=== PATIENT | male | born 1950 | race Caucasian/White ===

== ENCOUNTER → 2016-12-03 | Day surgery (SDC) | payer OTHER | END | disposition home or self-care (01) | LOC: FIMAGING 13:41 | PROVIDERS: ATTEND Radiology Diagnostic Radiology | PROC: 02HV33Z Insertion of Infusion Device into Superior Vena Cava, Percutaneous Approach (ICD-10-PCS; principal; 2016-12-03) | DX: T81.4XXA Infection following a procedure, initial encounter (principal); M00.812 Arthritis due to other bacteria, left shoulder; Z79.2 Long term (current) use of antibiotics | CPT/HCPCS: 36569; 77001; C1751 ==

== ENCOUNTER 2016-12-23 19:52 | Observation (INO) | payer OTHER ==
--- NOTE | 2016-12-23 20:31 | EDPHY ---
HPI/HX/ROS/PE/MDM Narrative: CHIEF COMPLAINT: PICC line pain. HISTORY OF PRESENT ILLNESS: The patient is a 66-year-old male with recent joint infection s/p left arm surgery, presenting with pain at his PICC line. The patient had the PICC line changed last Thursday12/19/16. Since the PICC line was changed the patient has been complaining of pain at the PICC site as well as bilateral axillary pain, worse in the right. He believes the pain is in his lymph nodes. He reports increased sensitivity at the lymph nodes. The pain is constant and feels similar to a bee sting. The patient notes some shortness of breath, but states this is due to increased stress. He denies fever, chills, chest pain, vomiting, diarrhea, urinary complaints, headache, or lightheadedness. REVIEW OF SYSTEMS: Aside from elements discussed in the HPI, a comprehensive 10-point review of systems was reviewed and is negative. PAST MEDICAL HISTORY: Cardiac ablation x2, PVCs, Sleep apnea, Left rotator cuff surgery. SOCIAL HISTORY: . Lives up [facility]. VITAL SIGNS: Reviewed by me GENERAL: Well-developed, well-nourished, resting comfortably in no respiratory distress. HEENT: Atraumatic. Eyes: No icterus, no injection. Mouth: moist mucous membranes. No erythema or lesions. Neck: supple with no adenopathy. LUNGS: Clear to auscultation bilaterally, no wheezes, rhonchi or rales. CARDIAC: Regular rate and rhythm, no rubs, murmurs or gallops. ABDOMEN: Soft, nontender, nondistended, bowel sounds normal. BACK: No CVA tenderness. EXTREMITIES: Right upper extremity PICC site no erythema, tenderness, swelling , or warmth. NEURO: Alert and oriented, grossly nonfocal. SKIN: Warm and dry, no rash. PSYCHIATRIC: Anxious appearing Portions of this note were transcribed by a medical scientific liaison. I personally performed a history, physical exam, medical decision making, and confirmed accuracy of information the transcribed note. ED Course: Patient presents with axillary pain that started after having his PICC line changed. PICC site appears normal, no erythema, swelling, tenderness, or warmth. Plan for right extremity ultrasound. EKG and chest x-ray ordered. Chest x-ray is negative for acute disease. US shows nonocclusive thrombus throughout the right subclavian, axillary, and brachial vein. Lab work is unremarkable, troponin is normal. 10:10 p.m.: I spoke Dr. Prakash, the hospitalist, who accepts the patient for admission. She recommends removing the PICC line. I started the patient on Lovenox. I ordered CT to look for PE due to complaints of shortness of breath. I spoke to Dr. Fry, who recommends not removing the PICC line. Patient should be started on Heparin or Lovenox. Patient's CT scan for pulmonary embolism is positive for a small pulmonary embolism in the right upper lobe. MDM: Differential diagnoses for the patient's symptom complex was considered including but not limited to infection, upper extremity DVT, pulmonary embolism , congestive heart failure, coronary artery disease. - Data Points Imaging Results: Imaging Impressions Chest X-Ray 12/23/16 20:38 Impression: No evidence for acute cardiopulmonary abnormality. Right PICC line appears in good position. Extremity Venous Study 12/23/16 20:39 Impression: Nonocclusive thrombus throughout the right subclavian, axillary, and brachial vein. Results called and discussed with Roxanne Booker MD at 12/23/2016 21:50. Chest/Thorax CTA 12/23/16 22:11 Impression: 1. Small pulmonary embolus in the posterior segment right upper lobe. 2. Minimal diskoid atelectasis right lower lobe. Imaging: Discussed imaging studies w/ forensic technician Radiologist Laboratory Results: Laboratory Results 12/23/16 20:44 12/23/16 20:44 12/23/16 12/23/16 20:44 20:44 WBC 8.05 10^3/uL 10^3/uL (3.80-9.50) RBC 4.23 10^6/uL L 10^6/uL (4.40-6.38) Hgb 13.4 g/dL L g/dL (13.7-17.5) Hct 38.8 % L % (40.0-51.0) MCV 91.7 fL fL (81.5-99.8) MCH 31.7 pg pg (27.9-34.1) MCHC 34.5 g/dL g/dL (32.4-36.7) RDW 13.0 % % (11.5-15.2) Plt Count 139 10^3/uL L 10^3/uL (150-400) MPV 10.0 fL fL (8.7-11.7) Neut % (Auto) 68.8 % % (39.3-74.2) Lymph % (Auto) 18.1 % % (15.0-45.0) Quay % (Auto) 8.3 % % (4.5-13.0) Eos % (Auto) 3.0 % % (0.6-7.6) Baso % (Auto) 0.4 % % (0.3-1.7) Nucleat RBC Rel Count 0.0 % % (0.0-0.2) Absolute Neuts (auto) 5.54 10^3/uL 10^3/uL (1.70-6.50) Absolute Lymphs (auto) 1.46 10^3/uL 10^3/uL (1.00-3.00) Absolute Monos (auto) 0.67 10^3/uL 10^3/uL (0.30-0.80) Absolute Eos (auto) 0.24 10^3/uL 10^3/uL (0.03-0.40) Absolute Basos (auto) 0.03 10^3/uL 10^3/uL (0.02-0.10) Absolute Nucleated RBC 0.00 10^3/uL 10^3/uL (0-0.01) Immature Gran % 1.4 % H % (0.0-1.1) Immature Gran # 0.11 10^3/uL H 10^3/uL (0.00-0.10) Sodium 140 mEq/L mEq/L (134-144) Potassium 3.9 mEq/L mEq/L (3.5-5.2) Chloride 105 mEq/L mEq/L (97-110) Carbon Dioxide 23 mEq/l mEq/l (22-31) Anion Gap 12 mEq/L mEq/L (8-16) BUN 19 mg/dL mg/dL (7-23) Creatinine 0.9 mg/dL mg/dL (0.7-1.3) Estimated GFR > 60 Glucose 94 mg/dL mg/dL (70-100) Calcium 9.5 mg/dL mg/dL (8.5-10.4) Troponin I < 0.012 ng/mL ng/mL (0-0.034) Medications Given: Discontinued Medications Enoxaparin Sodium (Lovenox) 80 mg SC EDNOW ONE Stop: 12/23/16 22:46 Last Admin: 12/23/16 23:07 Dose: 80 mg General Time Seen by Provider: 12/23/16 20:18 Initial Vital Signs: Initial Vital Signs Temperature (C) 36.4 C 12/23/16 19:56 Heart Rate 61 12/23/16 19:56 Respiratory Rate 16 12/23/16 19:56 Blood Pressure 150/83 H 12/23/16 19:56 O2 Sat (%) 93 12/23/16 19:56 O2 Delivery Mode Room Air Allergies/Adverse Reactions: Penicillins Allergy (Unknown, Verified 12/23/16 20:04) Home Medications: Medication Instructions Recorded Atorvastatin Calcium [Lipitor 20 20 mg PO DAILY 02/24/11 mg] HYDROCODONE BIT/ACETAMINOPHEN 1 - 2 ahfu PO Q4 PRN #11 02/24/11 [HYDROCODONE-APAP 10-500 TABLET] Metoprolol Tartrate [Lopressor] 25 mg PO BID 02/24/11 Supplements 02/24/11 Ambien 5MG (*) 12/23/16 Departure - Departure Disposition: [facility] Inpatient Acute Clinical Impression: DVT (deep venous thrombosis) Qualifiers: DVT location: upper extremity Affected thrombotic vein of extremity: axillary Chronicity: acute Laterality: right Qualified Code(s): I82.A11 - Acute embolism and thrombosis of right axillary vein Pulmonary embolism Qualifiers: Pulmonary embolism type: other Chronicity: acute Acute cor pulmonale presence: without acute cor pulmonale Qualified Code(s): I26.99 - Other pulmonary embolism without acute cor pulmonale Condition: Fair Report Scribed for: Roxanne Booker Report Scribed by: Margarette Fan Date of Report: 12/23/16 Time of Report: 20:38
[2016-12-23 20:58] LABS: % IMMATURE GRANULYOCYTES 1.4 % (0.0-1.1); ABSOLUTE IMMATURE GRANULOCYTES 0.11 10^3/uL (0.00-0.10); ADD DIFF? NO; ADD MORPH? NO; ADD SCAN? NO; ATYPICAL LYMPHOCYTE FLAG 0 (0-99); FRAGMENT RBC FLAG 0 (0-99); HEMATOCRIT 38.8 % (40.0-51.0); HEMOGLOBIN 13.4 g/dL (13.7-17.5); LEFT SHIFT FLG 10 (0-99); LIPEMIA HEMOLYSIS FLAG 90 (0-99); MEAN CELL HEMOGLOBIN 31.7 pg (27.9-34.1); MEAN CELL HEMOGLOBIN CONCENTR. 34.5 g/dL (32.4-36.7); MEAN CELL VOLUME 91.7 fL (81.5-99.8); PLATELET CLUMPS FLAG 0 (0-99); PLATELET COUNT 139 10^3/uL (150-400); RED BLOOD CELL COUNT 4.23 10^6/uL (4.40-6.38)
[2016-12-23 21:10] LABS: ANION GAP 12 mEq/L (8-16); CALCIUM 9.5 mg/dL (8.5-10.4); CARBON DIOXIDE 23 mEq/l (22-31); CHLORIDE 105 mEq/L (97-110); CREATININE 0.9 mg/dL (0.7-1.3); GLOMERULAR FILTRATION RATE > 60; GLUCOSE 94 mg/dL (70-100); POTASSIUM 3.9 mEq/L (3.5-5.2); SODIUM 140 mEq/L (134-144)
[2016-12-23 21:22] LABS: TROPONIN I < 0.012 ng/mL (0-0.034)
--- NOTE | 2016-12-23 21:28 | CPEKG ---
Heart Rate: 64 RR Interval: 938 P-R Interval: 184 QRSD Interval: 90 QT Interval: 448 QTC Interval: 463 P Tanner: 68 QRS Tanner: 18 T Wave Tanner: 24 EKG Severity - NORMAL ECG - EKG Impression: SINUS RHYTHM Electronically Signed By: Roxanne Booker 24-Dec-2016 00:42:21
[2016-12-23] MEDS ORDERED: IOPAMIDOL (ISOVUE 370) 100 ML BTL IV ONE (22:15)
[2016-12-23] MEDS ORDERED: HYDROCODONE/APAP 5/325 TAB ONE (22:42)
[2016-12-23] MEDS ORDERED: ENOXAPARIN 80 MG/0.8 ML SYR SC ONE (22:45)
[2016-12-23] MEDS: HYDROCODONE/APAP 5/325 TAB PO PRN (22:46)
[2016-12-23] MEDS ORDERED: ONDANSETRON 4 MG/2 ML VIAL IVP PRN (23:41)
[2016-12-23] MEDS ORDERED: ACETAMINOPHEN 325 MG TAB PO PRN (23:41)
[2016-12-23] MEDS ORDERED: ONDANSETRON DISINTEGRATING 4 MG TAB PO PRN (23:41)
[2016-12-24] MEDS ORDERED: ZOLPIDEM TARTRATE 5 MG TAB PO PRN (00:14)
--- NOTE | 2016-12-24 01:24 | GHP ---
[f rep st] HISTORY AND PHYSICAL DATE OF ADMISSION: 12/23/2016 CHIEF COMPLAINT: Right subclavian, axillary, brachial DVT, and small pulmonary embolism. HISTORY OF PRESENT ILLNESS: The patient is a 66-year-old male who presents with right arm swelling for the past day and a half, along with warmth. He does have a PICC line in place for long-term antibiotics in that arm. He initially underwent rotator cuff repair in October 2015 and then developed frozen shoulder and persistent pain. He got a second opinion and returned to the operating room on 11/14/2016 and underwent extensive debridement, anterior capsular release, removal of sutures, subacromial decompression, and revision of the cuff repair. Cultures were taken and grew P acnes. The patient was initially placed on doxycycline but was re-evaluated and was started on IV ceftriaxone in November of this year. He is followed by Dr. Monik Luna with Infectious Disease. Next, he complains of mildly sharp pain in his right axilla and under the biceps. He has noticed mild shortness of breath over this past week when walking his normal mile 3-4 times a week. Has associated lightheadedness and queasiness after infusing antibiotics at home. Denies overt chest pain. REVIEW OF SYSTEMS: I completed a 10-point review of systems, negative except as noted in HPI. PAST MEDICAL HISTORY: 1. Hyperlipidemia. 2. AIDAN on CPAP. 3. Retinal detachment. 4. Left septic arthritis on long-term antibiotics through 12/30/2016. 5. Squamous cell carcinoma. PAST SURGICAL HISTORY: 1. PVC ablation x2. 2. Cervical fusion. 3. Knee surgery. 4. Left shoulder surgery, as stated above. Laminectomy. SOCIAL HISTORY: Lives in [facility] with his . Drinks 1 drink a day ( previously drank up to 5 drinks a day.) No tobacco or drugs. FAMILY HISTORY: Father with prostate cancer. Mother passed of alcoholism. HOME MEDICATIONS: 1. Aspirin 325 mg daily. 2. Ceftriaxone 2 g IV daily through 12/30/2016. 3. Lipitor 20. 4. Metoprolol 25 mg twice daily. 5. Oxycodone. 6. Colace. 7. Vicodin. 8. Ambien 5 mg. ALLERGIES: Penicillin. PHYSICAL EXAMINATION: VITAL SIGNS: Temperature 36.3, blood pressure 165/81, respirations 16, 96% on room air. GENERAL: Patient is sitting up in bed, in no acute distress. HEENT: PERRLA. EOMI. Oropharynx clear. CV: Regular, bradycardic. No murmurs, gallops, or rubs. LUNGS: Clear to auscultation bilaterally. ABDOMEN: Soft, nontender, nondistended. : No suprapubic tenderness. MUSCULOSKELETAL: Left shoulder with limited range of motion. Surgical scar is healing well, clean, dry, and intact. Right arm with PICC line in place without evidence of infection. There is mild swelling of the upper arm. No warmth or erythema. NEURO: 2 through 12 intact. PSYCH: Alert and oriented x3. LABORATORY DATA: WBC is 8, hemoglobin 13, hematocrit 38, platelets 139. Sodium 140, potassium 3.9, chloride 105, carbon dioxide 23, BUN 19, creatinine 0.9, glucose 94. Troponin less than 0.012. EKG personally reviewed by me: Normal sinus rhythm. Chest x-ray personally reviewed: No effusion. PICC line appropriately placed. CTA: Small pulmonary embolus in the posterior segment of right upper lobe. Right upper extremity ultrasound: Nonocclusive thrombus throughout the right subclavian axillary and brachial vein. ASSESSMENT AND PLAN: 1. Provoked nonocclusive right subclavian/axillary/brachial deep venous thrombosis and small pulmonary embolism: due to peripherally-inserted central catheter line. Hemodynamically stable, negative troponin and no heart strain on EKG. Dose Lovenox tonight. I have discussed oral options including Coumadin versus novel agents and risks/benefits. Will further discuss the case with IR in the morning. Dr. Booker with ER initially talked to Dr. Fry, who stated that the line could stay in place, but will readdress with IR in the morning. 2. Left septic arthritis: continue ceftriaxone; normally takes 5pm. Closely by Dr. Monik Luna with Infectious Disease. 3. Obstructive sleep apnea: CPAP. 4. Hyperlipidemia: Statin. 5. Premature ventricular contractions, status post ablation x2: Continue metoprolol. 6. Chronic pain: resume home medications 7. Alcohol use: counseled on cessation. He has decreased the amount of drinking in the past 3 weeks. 8. Diet: Regular. 9. Deep venous thrombosis prophylaxis: On Lovenox. DISPOSITION: The patient warrants observation admission, given acute right upper extremity DVT, PE. Will discuss the case with IR and likely can DC in the morning. /[id number]/MODL MTDD
[2016-12-24] MEDS: HYDROCODONE/APAP 5/325 TAB PO PRN ×2 (04:27→08:30)
[2016-12-24 05:23] LABS: INR 1.02 (0.83-1.16); PROTIME(PATIENT) 13.3 SEC (12.0-15.0)
[2016-12-24 08:09] VITALS: RESP 16; O2SAT 94
[2016-12-24] MEDS ORDERED: DOCUSATE SODIUM 100 MG CAP PO SCH ×2 (09:00→21:00)
[2016-12-24] MEDS ORDERED: cefTRIAXone 2 GM in D5W 50 ML IV SCH ×2 (09:00→17:00)
[2016-12-24] MEDS ORDERED: ENOXAPARIN 80 MG/0.8 ML SYR SC SCH (09:00)
[2016-12-24] MEDS ORDERED: METOPROLOL TARTRATE 25 MG TAB PO SCH ×2 (09:00→21:00)
--- NOTE | 2016-12-24 10:26 | PDIAF ---
- Diagnosis Diagnosis: Septic arthritis L shoulder Code Status: Full Code - Medication Management Discharge Medications: Medications to Continue on Transfer Atorvastatin Calcium [Lipitor 20 mg] 20 mg PO DAILY 02/24/11 [Last Taken Unknown ] HYDROCODONE BIT/ACETAMINOPHEN [HYDROCODONE-APAP 10-500 TABLET] 1 - 2 ahfu PO Q4 PRN #11 02/24/11 [Last Taken Unknown] Metoprolol Tartrate [Lopressor] 25 mg PO BID 02/24/11 [Last Taken Unknown] Supplements 02/24/11 [Last Taken Unknown] Ambien 5MG (*) 12/23/16 [Last Taken Unknown] Fpc Antibiotics: ceftriaxone 2gm IV daily Credit Processor Antibiotic Stop Date: 12/30/16 Discharge Medications: Refer to the Discharge Home Medication list for PRN reason. PICC Care - Routine: Yes - Labs/Radiology CBC Date: 12/30/16 (weekly in clinic) CMP Date: 12/30/16 (weekly in clinic) - Follow Up Care Current Providers and Referrals: Giovanni Davila MD [Primary Care Provider] - As per Instructions Monik Luna MD [Medical Doctor] - 12/30/16 8:30 am
--- NOTE | 2016-12-24 10:26 | PCMIDPN ---
Assessment/Plan: L Septic arthritis secondary to p acnes --4 weeks ceftriaxone , stop date 12/30 --leave PICC in place, treat RUE clot/PE per IM recs --will pull PICC next week 12/30 --dc okay from ID perspective, interagency completed Subjective: 66 yo patient of my mine with septic arthritis of L shoulder with p acnes following ACL repair, now complicated by DVT associated with PICC and small PE. Today patient remains worried because of B axiliary pain. Objective: Vital Signs Temp Pulse Resp BP Pulse Ox 36.3 C 67 16 104/61 94 12/24/16 08:00 12/24/16 08:00 12/24/16 08:00 12/24/16 08:00 12/24/16 08:00 12/23/16 12/24/16 12/25/16 05:59 05:59 05:59 Intake Total 100 Balance 100 - Physical Exam General Appearance: alert, no apparent distress Respiratory: No accessory muscle use - Time Spent With Patient Time Spent with Patient: greater than 35 minutes (education regarding ongoing IV antibiotics, leaving PICC line in place, futher complications including rash , diarrhea, fever) Time Spent with Patient: Greater than 35 minutes spent on this patients care, greater than 50% of time spent counseling, educating, and coordinating care regarding the above mentioned plan. ICD10 Worksheet Patient Problems: Problems Problem Status Onset DVT (deep venous thrombosis) Acute Pulmonary embolism Acute
--- NOTE | 2016-12-24 10:32 | HOSPPROG ---
Hospitalist Progress Note Assessment/Plan: Patient is a 66-year-old male who presented to the emergency room with right arm swelling for the last day and half. Her right upper extremity ultrasound shows a nonocclusive thrombus to the right subclavian axillary and brachial vein. A CT noted a small pulmonary embolus in the posterior segment of the right upper lobe. Today is my 1st encounter with the patient. Chart reviewed. Discussed his care with Dr. Luna. * DVT /right subclavian / axillary/ brachial area as well as a small PE on treatment dose of low molecular weight heparin will discuss with the patient options for anticoagulation/ coumadin in the past / but difficulty getting INR will treat w Xarelto-he is checking his insurance * left septic arthritis PICC in place will be continued on ceftriaxone * obstructive sleep apnea CPAP * hyperlipidemia statin therapy * history of PVCs status post ablation on metoprolol reviewed tele / infreq PVc * chronic pain * alcohol use *Plan: dc later today Subjective: Luis is anxious for discharge. Objective: Vital Signs Temp Pulse Resp BP Pulse Ox 36.3 C 67 16 104/61 94 12/24/16 08:00 12/24/16 08:00 12/24/16 08:00 12/24/16 08:00 12/24/16 08:00 12/23/16 12/24/16 12/25/16 05:59 05:59 05:59 Intake Total 100 Balance 100 PT 13.3 SEC (12.0-15.0) 12/24/16 04:50 INR 1.02 (0.83-1.16) 12/24/16 04:50 - Physical Exam Constitutional: no apparent distress, appears nourished, not in pain Eyes: PERRL Ears, Nose, Mouth, Throat: hearing normal Respiratory: no respiratory distress Skin: other (r arm w picc in place/minimal swelling) Neurologic: AAOx3 Psychiatric: interacting appropriately ICD10 Worksheet Patient Problems: Problems Problem Status Onset DVT (deep venous thrombosis) Acute Pulmonary embolism Acute
[2016-12-24 11:17] VITALS: BP 109/71; PULSE 61; TEMP 98.2
[2016-12-24] MEDS ORDERED: HYDROCODONE/APAP 10/325 TAB PO PRN (12:06)
--- NOTE | 2016-12-24 12:30 | GDS ---
[f rep st] DISCHARGE SUMMARY DISCHARGE DIAGNOSES: 1. Deep vein thrombosis in the right subclavian, axillary, and brachial area, as well as a small pulmonary embolism on the right side. 2. Left septic arthritis. 3. Obstructive sleep apnea. 4. Hyperlipidemia. 5. History of premature ventricular contractions, status post ablation. 6. Chronic pain. 7. Alcohol use. CONSULTATIONS: During his state, Monik Luna MD. HISTORY: The patient is a 66-year-old male, who presented with right-arm swelling for approximately a day and a half with warmth. He has a PICC line placed for long-term antibiotics. He initially underwent a rotator cuff repair in October 2015 and developed a frozen shoulder and persistent pain. He had a 2nd opinion and returned to the operating room in October 2016. At that time, he underwent extensive debridement and revision of the cuff repair. Cultures were taken and grew out P acnes. He is on ceftriaxone for this. He was having some sharp pain in his right axilla and under the biceps. He has noticed some mild shortness of breath. He also today was complaining of pain underneath the left armpit area. He will be discharged to home on Xarelto and further followup with his shade cloth finisher in regard to aspirin therapy and Xarelto, as well as having PVCs. HOSPITAL COURSE PER PROBLEM: 1. Nonocclusive DVT in the right subclavian, axillary, and brachial area, as well as a small PE. He was treated with treatment dose of low molecular-weight heparin. He will be on Xarelto. 2. Septic arthritis. PICC in place. He will be on ceftriaxone. 3. Obstructive sleep apnea, on CPAP. 4. Hyperlipidemia, on statin therapy. 5. History of PVCs, status post ablation. I reviewed his telemetry strips. He has had very few PVCs. He is on metoprolol. 6. Chronic pain. Continues home medication. 7. Alcohol use. He has cut down significantly over the last couple weeks. DISCHARGE CONDITION: Stable. Blood pressure is 109/71, heart rate is 61 respiratory rate is 16, O2 sats on room air 94%, temperature is 36.8 Celsius. MEDICATIONS AT DISCHARGE: Please see the EMR. DISCHARGE INSTRUCTIONS: 1. Recommending that he avoid alcohol in the setting of being on Xarelto as well as aspirin therapy. 2. Discuss with his shade cloth finisher if he needs to stay on aspirin while on Xarelto. 3. Follow up with Dr. Monik Luna as scheduled. 4. I have given him a handout in regards to Xarelto. /[id number]/MODL MTDD
[2016-12-24] MEDS ORDERED: [UNRECOGNIZED DRUG - OTHER] IV SCH (17:00)
[2016-12-24] MEDS ORDERED: CEFTRIAXONE IN IS OSM DEXTROSE IV SCH (17:00)
[2016-12-24] MEDS ORDERED: ATORVASTATIN CALCIUM 20 MG TAB PO SCH (18:00)
[2016-12-24] MEDS ORDERED: ZOLPIDEM TARTRATE 5 MG TAB PO SCH (21:00)
[2016-12-24] MEDS ORDERED: METOPROLOL TARTRATE 100 MG TAB PO SCH (21:00)
[2016-12-25] MEDS ORDERED: Herbals/Supplements -Info Only PO SCH (09:00)
== END 2016-12-24 13:33 | disposition home or self-care (01) ==
LOC: F3E 23:11
PROVIDERS: ADMIT Internal Medicine; ATTEND Family Medicine
DX: I82.B11 Acute embolism and thrombosis of right subclavian vein (principal); I82.A11 Acute embolism and thrombosis of right axillary vein; M00.812 Arthritis due to other bacteria, left shoulder; I26.99 Other pulmonary embolism without acute cor pulmonale; T82.868A Thrombosis due to vascular prosthetic devices, implants and grafts, initial encounter; T81.4XXA Infection following a procedure, initial encounter; G47.33 Obstructive sleep apnea (adult) (pediatric); E78.5 Hyperlipidemia, unspecified; Y82.8 Other medical devices associated with adverse incidents; G89.29 Other chronic pain; I49.9 Cardiac arrhythmia, unspecified; Z95.9 Presence of cardiac and vascular implant and graft, unspecified; Z85.828 Personal history of other malignant neoplasm of skin; Z79.2 Long term (current) use of antibiotics; Z98.1 Arthrodesis status; Z88.0 Allergy status to penicillin
CPT/HCPCS: 71020; 71275; 93005; 93971; 96372; 99285; G0378; J1650; Q9967; J0696

== ENCOUNTER 2017-01-01 17:04 | Emergency (ER) | payer OTHER ==
--- NOTE | 2017-01-01 19:35 | EDPHY ---
H & P Stated Complaint: R jaw/ear pain, can't fully close jaw - Personal History Current Tetanus/Diphtheria Vaccine: Yes Current Tetanus Diphtheria and Acellular Pertussis (TDAP): Yes - Medical/Surgical History Hx Asthma: No Hx Chronic Respiratory Disease: No Hx Diabetes: No Hx Cardiac Disease: Yes Hx Renal Disease: No Hx Cirrhosis: No Hx Alcoholism: No Hx HIV/AIDS: No Hx Splenectomy or Spleen Trauma: No Other PMH: cardiac disrhythmia, hyperlipidemia,L rotator cuff surg x 2, c3-c5 fusion, heart ablation x 2, L spine discectomy, R knee surg, reattachment of L retina, sleep apnea - Social History Smoking Status: Never smoked HPI/ROS: Chief complaint: Jaw pain History of present illness: This is a 66-year-old male who presents to the emergency department for evaluation jaw pain. He is concerned he has dislocated his jaw. Patient states this morning while yawning he felt something pull on the right side of his jaw around the joint. Since then he has had pain. The pain radiates up towards the ear and down along the jaw. It hurts to open and close his mouth. It especially hurts to bite down hard. However he can still open and close his mouth. He denies associated signs or symptoms including no history of direct trauma, no difficulty swallowing, talking or breathing. He has never had similar. (Henrry Prakash) - Physical Exam Exam: General: Alert, nontoxic Skin: No lesions noted on the face or neck. ENT: Tympanic membranes, external auditory canals, external ears and surrounding soft tissue including over the mastoids are unremarkable. Nasopharynx is not injected. There is no rhinorrhea. Oropharynx is not injected. There is no edema. There is no exudate. There is no asymmetry. The uvula is midline. No elevation of the tongue. There is no hoarseness, no drooling, no trismus, no stridor. Musculoskeletal: There is tenderness around the right TMJ. Discomfort when he opens and closes it. He is able to open and close his mouth although this causes discomfort. He does appear to have a normal bite. The rest of his face and neck are nontender. Neurologic: Alert and oriented x4. (Henrry Prakash) Constitutional: Initial Vital Signs Temperature (C) 36.4 C 01/01/17 17:07 Heart Rate 76 01/01/17 17:07 Respiratory Rate 15 01/01/17 17:07 Blood Pressure 128/72 H 01/01/17 17:07 O2 Sat (%) 97 01/01/17 17:07 O2 Delivery Mode Room Air Allergies/Adverse Reactions: Penicillins Allergy (Unknown, Verified 01/01/17 17:07) Home Medications: Medication Instructions Recorded Atorvastatin Calcium [Lipitor 20 20 mg PO DAILY@1800 02/24/11 mg (*)] Metoprolol Tartrate [LOPRESSOR] 25 mg PO BID 02/24/11 Aspirin [Aspirin 325 mg (*)] 325 mg PO DAILY 12/24/16 Ceftriaxone in Is-Osm Dextrose 2 gm IV DAILY@1700 12/24/16 [Ceftriaxone 2 gm-D5w Bag] Docusate Sodium [Colace 100 MG (*)] 100 mg PO BID 12/24/16 Herbals/Supplements -Info Only 1 ea PO DAILY 12/24/16 Hydrocodone/Acetaminophen 0.5 tab PO Q6H PRN 12/24/16 [Hydrocodon-Acetaminophn 10-325] Rivaroxaban [Xarelto 15mg (*)] 15 mg PO BID #42 tab 12/24/16 Zolpidem Tartrate [Ambien 5MG (*)] 5 mg PO HS 12/24/16 Medical Decision Making ED Course/Re-evaluation: Patient seen under the supervision of my secondary supervising physician Dr. Roxanne Booker. Patient presents to the emergency department for pain around his right TMJ. CT scan of this region is obtained and negative. I do believe this is TMJ dysfunction. Patient is nontoxic without other complaint. He is opening closing his mouth, controlling his oral secretions, swallowing, talking and breathing without difficulty. He will be discharged home. Home care is discussed. He is referred to ENT for recheck. Return precautions are given. Patient voiced understanding and agreement with plan. (Henrry Prakash) Differential Diagnosis: Included but not limited to temporal mandibular dislocation, TMJ dysfunction, infectious pathology such as dental infection (Henrry Prakash) Other Provider: The patient was evaluated and managed by the Physician Self Propelled Mining Machine Operator/ Nurse Practitioner. My co-signature indicates that I have reviewed this chart and I agree with the findings and plan of care as documented. I am the secondary supervising physician. (Roxanne Booker) Departure - Departure Disposition: Home, Routine, Self-Care Clinical Impression: TMJ dysfunction Condition: Good Instructions: Temporomandibular Disorder (ED) Additional Instructions: Follow-up with ears Nose and Throat next week for recheck If symptoms worsen or new symptoms develop return to the emergency room for recheck Referrals: Giovanni Davila MD [Primary Care Provider] - As per Instructions Soham Agarwal MD [Medical Doctor] - As per Instructions
[2017-01-01 19:59] VITALS: BP 139/81; PULSE 57; RESP 16; TEMP 98.1; O2SAT 93
== END 2017-01-01 19:45 | disposition home or self-care (01) ==
DX: M26.69 Other specified disorders of temporomandibular joint (principal); Z79.82 Long term (current) use of aspirin

== ENCOUNTER → 2018-11-13 | Outpatient (CLI) | payer OTHER | LOC: FIMAGING 10:06 | PROVIDERS: ATTEND Internal Medicine | DX: R91.1 Solitary pulmonary nodule (principal) ==